=== PATIENT | female | born 1970 | race Caucasian/White ===

== ENCOUNTER 2020-07-12 07:56 | Day surgery (SDC) | payer MEDICAID, SELFPAY ==
[~2020-07-12] VITALS: Ht 180.3 cm; Wt 96.2 kg
[2020-07-12 08:44] LABS: HCG,QUAL RESULT NEGATIVE (NEGATIVE)
[2020-07-12] MEDS ORDERED: LIDOCAINE/EPI 1% 1:100000 20 ML VIAL INJ ONE (10:13)
[2020-07-12] MEDS ORDERED: KETOROLAC TROMETHAMINE 30 MG VIAL IVP ONE (10:13)
[2020-07-12] MEDS ORDERED: MIDAZOLAM HCL 5 MG/5 ML VIAL IVP ONE (10:13)
[2020-07-12] MEDS ORDERED: LR 1,000 ML IV.SOLN IV ONE (10:13)
[2020-07-12] MEDS ORDERED: NS IRRIG SOLN 1000 ML IR ONE (10:13)
[2020-07-12] MEDS ORDERED: ISOFLURANE 15 MIN GAS INH ONE (10:13)
[2020-07-12] MEDS ORDERED: BACITRACIN ZINC 15 GM TOPICAL OINTMENT TP ONE (10:13)
[2020-07-12] MEDS ORDERED: OXYMETAZOLINE HCL 0.05% NASAL SPRAY NS ONE (10:13)
[2020-07-12] MEDS ORDERED: SUGAMMADEX SODIUM 200 MG/2 ML VIAL IV ONE (10:13)
[2020-07-12] MEDS ORDERED: WATER FOR IRRIGATION,STERILE 1,000 ML IRRIG.SOLN IR ONE (10:13)
[2020-07-12] MEDS ORDERED: ROCURONIUM BROMIDE 10 MG/ML (ZEMURON) IV ONE (10:13)
[2020-07-12] MEDS ORDERED: PROPOFOL 200MG/ 20ML VIAL (DIPRIVAN) IV ONE (10:13)
[2020-07-12] MEDS ORDERED: fentaNYL CITRATE 250 MCG/5 ML AMP IV ONE (10:13)
[2020-07-12] MEDS ORDERED: MUPIROCIN 2% TOPICAL OINTMENT 22 GM TP ONE (10:13)
[2020-07-12] MEDS ORDERED: DEXAMETHASONE SOD PHOSPHATE 4 MG/ML VIAL IVP ONE (10:13)
[2020-07-12] MEDS ORDERED: METOCLOPRAMIDE HCL 10 MG/2 ML VIAL IVP PRN (11:15)
[2020-07-12] MEDS ORDERED: MEPERIDINE HCL/PF 25 MG/ML DISP.SYRIN IVP PRN (11:15)
[2020-07-12] MEDS ORDERED: MIDAZOLAM HCL 2 MG/2 ML VIAL (VERSED) IVP PRN (11:15)
[2020-07-12] MEDS ORDERED: hydrALAZINE HCL 20 MG/ML VIAL IVP PRN (11:15)
[2020-07-12] MEDS ORDERED: HYDROmorphone 1 MG INJ. 1 MG/ML AMPUL IVP PRN (11:15)
[2020-07-12] MEDS ORDERED: LABETALOL 100 MG/ 20ML VIAL IVP PRN (11:15)
[2020-07-12] MEDS ORDERED: LR 1,000 ML IV SCH (11:15)
[2020-07-12] MEDS ORDERED: ONDANSETRON HCL 4 MG/2 ML VIAL IVP PRN (11:15)
[2020-07-12] MEDS: HYDROmorphone 1 MG INJ. 1 MG/ML AMPUL IVP PRN ×3 (13:05→13:30)
[2020-07-12] MEDS ORDERED: HYDROmorphone 1 MG INJ. 1 MG/ML AMPUL ONE (13:23)
[2020-07-12 13:43] VITALS: BP_SYST 139
== END 2020-07-12 14:38 | disposition still patient (30) ==
LOC: SDS 07:56 → SMU 07:57 → SDS 14:38
PROVIDERS: ATTEND Otolaryngology
DX: J34.2 Deviated nasal septum (principal); D38.5 Neoplasm of uncertain behavior of other respiratory organs; J32.4 Chronic pansinusitis; J30.1 Allergic rhinitis due to pollen; R91.8 Other nonspecific abnormal finding of lung field; Z79.899 Other long term (current) drug therapy; Z20.828 Contact with and (suspected) exposure to other viral communicable diseases
CPT/HCPCS: 30140; 30520; 31255; 84703; 88305; 88311; C9399; J1100; J1170; J1885; J2250; J2704; J3010; J7120; U0003